=== PATIENT | male | born 1990 | race Caucasian/White ===

== ENCOUNTER 2017-12-12 08:24 | Inpatient (IN) | payer BC ==
[2017-12-12] VITALS (15 sets, daily range): BP systolic 91–161; BP diastolic 21–95
[~2017-12-12] VITALS: Ht 172.7 cm; Wt 79.8 kg
--- NOTE | 2017-12-12 08:31 | NUR ---
AAOX3, c/o nausea and vomiting since last night. RR is even and unlabored with NAD noted. skin is warm and dry. Awaiting md for eval.
[2017-12-12 08:53] LABS: EOSINOPHILS % (AUTO) 0.1 % (0.0-6.0); HEMATOCRIT 42 % (39-51); HEMOGLOBIN 14.6 g/dL (13.5-17.5); LYMPHOCYTES # (AUTO) 0.8 /CMM (0.8-4.8); LYMPHOCYTES % (AUTO) 6.5 % (20.0-44.0); MEAN CORPUSCULAR HGB CONC 35 g/dl (31.0-36.0); MEAN CORPUSCULAR VOLUME 85 fL (80-96); MONOCYTES # (AUTO) 0.7 /CMM (0.1-1.30); NEUTROPHILS # (AUTO) 10.6 /CMM (1.8-8.9); NEUTROPHILS % (AUTO) 87.4 % (43.0-81.0); PLATELET COUNT (AUTO) 263 /CMM (150-450); RDW COEFFICIENT OF VARIATION 13.5 (11.5-15.0); RED BLOOD CELL COUNT(AUTO) 4.86 MIL/uL (4.5-6.0); WHITE BLOOD COUNT (AUTO) 12.1 K/uL (4.3-11.0)
--- NOTE | 2017-12-12 09:04 | NUR ---
Patient is actively having a seizure, placed on NR at 15L/min. ER made aware.
[2017-12-12] MEDS ORDERED: LORAZEPAM INJ 2 MG/ML VIAL ONE (09:05)
[2017-12-12 09:08] LABS: ALBUMIN 4.1 g/dL (3.4-5.0); BILIRUBIN,DIRECT 0.2 mg/dL (0.0-0.2); CALCIUM, SERUM 8.7 mg/dL (8.5-10.1); CREATININE 0.8 mg/dL (0.6-1.3); POTASSIUM 4.5 mmol/L (3.5-5.1); TOTAL PROTEIN, SERUM 7.8 g/dL (6.4-8.2)
--- NOTE | 2017-12-12 09:21 | NUR ---
[facility] PAGED [phone] DR GONZALEZ LEAD SIMULATION MODELING ENGINEER
[2017-12-12] MEDS ORDERED: HYDROCORTISONE SOD SUCCINATE 100 MG/2 ML VIAL ONE (09:22)
[2017-12-12] MEDS ORDERED: IV Sodium Chloride 3% 500 ML 500 ML IV ONE ×3 (09:30→13:00)
[2017-12-12] MEDS ORDERED: LORAZEPAM INJ 2 MG/ML VIAL IV ONE (09:30)
[2017-12-12] MEDS ORDERED: HYDROCORTISONE SOD SUCCINATE 100 MG/2 ML VIAL IV ONE (09:30)
[2017-12-12] MEDS ORDERED: DESM0.2T23 PO (09:35)
[2017-12-12] MEDS ORDERED: LEVE1000 PO (09:35)
[2017-12-12 09:53] LABS: ALANINE AMINOTRANSFERASE 30 U/L (12-78); ALBUMIN 4.2 g/dL (3.4-5.0); ALCOHOL, BLOOD < 3 mg/dL (0-0); ALKALINE PHOSPHATASE 73 U/L (46-116); ASPARTATE AMINOTRANSFERASE 45 U/L (15-37); BILIRUBIN,DIRECT 0.2 mg/dL (0.0-0.2); TOTAL PROTEIN, SERUM 8.3 g/dL (6.4-8.2)
--- NOTE | 2017-12-12 10:07 | NUR ---
Patient is resting comfortably in bed with eyes closed. Easily aroused. VSS
--- NOTE | 2017-12-12 10:23 | NUR ---
called LAB for repeat blood draw.
[2017-12-12 10:43] LABS: CALCIUM, SERUM 8.4 mg/dL (8.5-10.1); CREATININE 0.9 mg/dL (0.6-1.3); POTASSIUM 4.4 mmol/L (3.5-5.1)
--- NOTE | 2017-12-12 10:52 | NUR ---
Report given to BARR[place] Tobias for INGRID 252.
--- NOTE | 2017-12-12 11:00 | NUR ---
ICU/RN PT ADMITTED FROM ER ,FROM HOME. ON RA.SAT O2-97%.V/S STABLE,AFEBRILE NO PAIN REPORTED AT THIS TIME.NOT C/O OF ANY NAUSEA/VOMITING AT THIS TIME. PERIFERAL IV INFUSING WITH 3%NS AT 100ML /HR. SKIN INTACT.WILL CONTINUE TO MONITOR.
[2017-12-12 11:03] LABS: APPEARANCE,URINE Slightly Cloudy (CLEAR); BILIRUBIN,URINE Negative (NEGATIVE); BLOOD, URINE Large Ery/uL (NEGATIVE); COLOR,URINE Yellow (YELLOW); KETONES,URINE 80 (NEGATIVE); LEUKOCYTE ESTERASE ,URINE Negative (NEGATIVE); NITRITE, URINE Negative (NEGATIVE); PROTEIN,URINE 30 mg/dl (NEGATIVE); UGLUCOSE Negative (NEGATIVE); UROBILINOGEN,URINE 0.2 EU/dL (0.2)
[2017-12-12 11:12] LABS: BACTERIA,URINE Rare /HPF (None Seen); RBC,URINE 20-50 /HPF (0-2); SQUAMOUS EPITHELIAL CELL,UR Few /HPF (None Seen); WBC,URINE 0-3 /HPF (0-3)
[2017-12-12] MEDS ORDERED: MAG HYDROX/AL HYDROX/SIMETH 30 ML UDC PO PRN (12:00)
[2017-12-12] MEDS ORDERED: HYDROCODONE/APAP 5/325MG 1 EACH TABLET PO PRN (12:00)
[2017-12-12] MEDS ORDERED: Z GUARD REMEDY 2 OZ OINT TP PRN (12:00)
[2017-12-12] MEDS ORDERED: MAGNESIUM HYDROXIDE 30 ML UDC PO PRN (12:00)
[2017-12-12] MEDS ORDERED: ACETAMINOPHEN 325 MG TABLET PO PRN (12:00)
[2017-12-12] MEDS ORDERED: LORAZEPAM INJ 2 MG/ML VIAL IV PRN (12:00)
[2017-12-12] MEDS ORDERED: ZOLPIDEM TARTRATE 5 MG TABLET PO PRN (12:00)
[2017-12-12] MEDS ORDERED: ONDANSETRON HCL/PF 4 MG/2 ML VIAL IVP PRN (12:00)
--- NOTE | 2017-12-12 12:10 | NUR ---
ICU/RN DUE MEDS ARE GIVEN ORDERED.DR GONZALEZ AND DR BE SEE THE PT AND TALK TO THE FAMILY AT BEDSIDE.PT HAS DIARRHEA-LIQUID BROWN STOOL.
[2017-12-12] MEDS: ENOXAPARIN SODIUM 40 MG/0.4 ML DISP.SYRIN SQ SCH (13:06)
[2017-12-12] MEDS: DESMOPRESSIN ACETATE 0.1 MG TABLET PO SCH ×2 (14:23→16:47)
[2017-12-12 15:52] LABS: CALCIUM, SERUM 8.3 mg/dL (8.5-10.1); CREATININE 0.7 mg/dL (0.6-1.3); POTASSIUM 4.1 mmol/L (3.5-5.1)
[2017-12-12] MEDS: LEVETIRACETAM (250 MG) 250 MG TABLET PO SCH (20:38)
--- NOTE | 2017-12-12 22:00 | NUR ---
CLIENT SPECIALIST - REC'D PT. A&O X 3, HOWEVER-AFTER EXPLAINING TO PT. TO USE CALL JAY WHEN HE NEEDS TO USE BSC, HE DIDN'T. COY'S. BED ALARM RINGING SEVERAL TIMES WHEN PT. ATTEMPTED TO GET OOB. HE STATED"HE FORGOT". PT. STANDS FIRMLY & SHOWS NO S/S OF DISTRESS, SX ACTIVITY NOR DISCOMFORT. PT. ACTS MORE ANXIOUS. HEART MONITOR SHOWS NSR/60-70'S, SBP'S ARE WNL. DENIES PAIN. AT 20:40, ATIVAN 0.5MG SLOW IVP WAS ADM. FOR COMFORT. AFEBRILE. NO EDEMA, ALL PULSES PALPABLE X 4 EXT. PT.HAS ONLY ONE PIV TO LAC & HAS 0.3%NS INFUSING AT 20CC/HR. VIA BRAGA PUMP. ALL PORTS PATENT TO FLUSH. CALL JAY IN REACH. PT. HAS POOR APPETITE. URINAL IS AT BS. ALSO. SKIN INTACT. PT.IS RECEIVING SODIUM BLOOD DRAWS Q 6 HRS. AT 2100-PT'S NA+ WAS #117 FROM #115 LAST ONE DRAWN. PT'S MOTHER-TRACY GRAHAM PHONED FROM [place]. STATUS UPDATE GIVEN OVER PHONE ONCE PT'S BIRTHDAY WAS VERIFIED. CONT.POC.
[2017-12-13] VITALS (16 sets, daily range): BP systolic 101–141; BP diastolic 44–104
--- NOTE | 2017-12-13 02:41 | NUR ---
PIG FURNACE OPERATOR - PT.'S BED ALARM IS SOUNDING OFF. PT. FOUND STANDING AT SIDE OF BED USING BSC TO URINATE. PT.IS COMPLETELY OFF THE MONITOR. RN REPEATEDLY REMINDED PT. TO USE CALL JAY (IN HIS BED) & HAS URINALS AT BOTH SIDES OF BED. PT. STATED "I FORGOT" AGAIN. PT.IS A&O X 3, HE KNOWS HIS NAME, THAT HE IS IN THE HOSPITAL & KNEW IT IS TUESDAY. NO SEIZURE ACTIVITY NOTED. CONT.POC.
[2017-12-13 03:42] LABS: BASOPHILS % (AUTO) 0.1 % (0.0-2.0); EOSINOPHILS % (AUTO) 0.5 % (0.0-6.0); HEMATOCRIT 42 % (39-51); HEMOGLOBIN 14.5 g/dL (13.5-17.5); LYMPHOCYTES # (AUTO) 1.4 /CMM (0.8-4.8); MEAN CORPUSCULAR HGB CONC 35 g/dl (31.0-36.0); MEAN CORPUSCULAR VOLUME 86 fL (80-96); MONOCYTES # (AUTO) 1.3 /CMM (0.1-1.30); MONOCYTES % (AUTO) 10.4 % (2.0-12.0); NEUTROPHILS # (AUTO) 9.8 /CMM (1.8-8.9); PLATELET COUNT (AUTO) 253 /CMM (150-450); RDW COEFFICIENT OF VARIATION 13.8 (11.5-15.0); RED BLOOD CELL COUNT(AUTO) 4.82 MIL/uL (4.5-6.0); WHITE BLOOD COUNT (AUTO) 12.5 K/uL (4.3-11.0)
[2017-12-13 04:06] LABS: CALCIUM, SERUM 8.7 mg/dL (8.5-10.1); CREATININE 0.7 mg/dL (0.6-1.3); MAGNESIUM 1.9 mg/dL (1.8-2.4); PHOSPHORUS 2.7 mg/dL (2.5-4.9)
[2017-12-13 04:12] LABS: POTASSIUM 3.5 mmol/L (3.5-5.1)
[2017-12-13] MEDS ORDERED: IV NS 0.9% 1,000 ML BAG IV PRN (06:30)
--- NOTE | 2017-12-13 06:45 | NUR ---
SENIOR POLICY ADVISOR - PT.REC'D A COMP. BEDBATH AT 5AM DUE TO [employer]. UOP = 2,600CC FOR 12 HR. SHIFT. PT'S MOTHER PHONED AGAIN AT 0640AM. STATUS UPDATE GIVEN. DR. TO PHONED FOR MIV ORDER. 3%NS WAS DC'D & MD ORDERED 0.9NS AT 100CC/HR. NOTED & DONE. AFEBRILE. PT.REMAINS ON R/A, POOR APPETITE. LAST SERUM SODIUM LEVEL = 120. CONT. POC. REPORT ADM. TO REGINALD FERRIS.
--- NOTE | 2017-12-13 07:15 | NUR ---
CIVILIAN JAIL OFFICER INITIAL NOTE PATIENT RECEIVED IN BED ALERT AND ORIENTED PLAN OF CARE DISCUSSED WITH THE PATIENT, PATIENT IN NO DISTRESS AT THIS TIME ABLE TO MAKE NEEDS KNOWN, 2 URINALS EMPTIED PATIENT ABLE TO MAKE NEEDS ATTENDED RN WILL CONTINUE TO MONITOR THROUGHOUT THE DAY
[2017-12-13] MEDS: DESMOPRESSIN ACETATE 0.1 MG TABLET PO SCH ×3 (08:22→16:49)
[2017-12-13] MEDS: LEVETIRACETAM (250 MG) 250 MG TABLET PO SCH ×2 (08:22→21:33)
[2017-12-13] MEDS: ENOXAPARIN SODIUM 40 MG/0.4 ML DISP.SYRIN SQ SCH (08:23)
--- NOTE | 2017-12-13 12:54 | NUR ---
RN NOTE RN CONTACTED THE KITCHEN FOR PATIENT LUNCH TRAY. KITCHEN STATES THE WILL REMAKE AND BRING IN A TRAY
--- NOTE | 2017-12-13 17:29 | NUR ---
RN NOTE PATIENT ABG OBTAINED RIGHT FEMORAL HD CATHETER PLACED PATIENT CONTINUES ON BIPAP AT THIS TIME, RIGHT NASAL BLEEDING NOTED ANU CERNA MADE AWARE, MD BOWMNA PLACE NASAL ROCKET TEMPORARILY. RN ATTEMPTED TO STOP BLEEDING VIA LIGHT PACKING AND APPLYING PRESSURES UNSUCCESSFUL DUE/TO DESATURATIONS WHILE OFF BIPAP. Addendum: 12/13/17 at 1859 by AL GARCIA RN PLEASE DISREGARD CHARTED UNDER WRONG PATIENT
--- NOTE | 2017-12-13 18:54 | NUR ---
SCHEDULE SUPERVISOR CLOSING NOTES PT REMAINS STABLE SINCE TRANSFER FROM ICU. VITALS STABLE THROUGHOUT. NO SEIZURE ACTIVITY NOTED, BUT PRECAUTIONS INITIATED FOR SAFETY. PT DENIES ANY PAIN. SMOKING CONSENT OBTAINED AND FORENSIC AUDIT EXPERT ERYN SIGNED. NEEDS MET DURING SHIFT. WILL ENDORSE TO NIGHTSHIFT NURSE FOR INGRID
[2017-12-14] VITALS: BP 131/80
[2017-12-14 04:00] VITALS: BP 150/76
[2017-12-14 06:27] LABS: BASOPHILS % (AUTO) 0.4 % (0.0-2.0); EOSINOPHILS % (AUTO) 1.4 % (0.0-6.0); HEMATOCRIT 47 % (39-51); HEMOGLOBIN 16.6 g/dL (13.5-17.5); LYMPHOCYTES # (AUTO) 2.3 /CMM (0.8-4.8); MEAN CORPUSCULAR HGB CONC 35 g/dl (31.0-36.0); MEAN CORPUSCULAR VOLUME 86 fL (80-96); MONOCYTES # (AUTO) 1.4 /CMM (0.1-1.30); MONOCYTES % (AUTO) 13.4 % (2.0-12.0); NEUTROPHILS # (AUTO) 6.6 /CMM (1.8-8.9); NEUTROPHILS % (AUTO) 62.8 % (43.0-81.0); PLATELET COUNT (AUTO) 271 /CMM (150-450); RDW COEFFICIENT OF VARIATION 14.9 (11.5-15.0); RED BLOOD CELL COUNT(AUTO) 5.51 MIL/uL (4.5-6.0); WHITE BLOOD COUNT (AUTO) 10.6 K/uL (4.3-11.0)
[2017-12-14 06:50] LABS: CALCIUM, SERUM 9.6 mg/dL (8.5-10.1); CREATININE 0.8 mg/dL (0.6-1.3); MAGNESIUM 1.9 mg/dL (1.8-2.4); PHOSPHORUS 3.6 mg/dL (2.5-4.9)
--- NOTE | 2017-12-14 07:10 | NUR ---
RN NOTES RECEIVED PT ON BED, A/Ox4, RESPIRATION EVEN AND UNLABORED , ON RA, NO SOB NOTED, ON TELE SR HR IN 60'S , NO IV SITE NOTED , PT STATED ,HE TOOK IT OUT BY MISTAKE , SR UP x3, CALL LIGHT WITHIN EASY REACH, BED LOCKED AND IN LOWEST POSITION , WILL CONTINUE TO MONITOR PT CLSOELY .
[2017-12-14 08:00] VITALS: BP 99/56
[2017-12-14] MEDS: LEVETIRACETAM (250 MG) 250 MG TABLET PO SCH (08:43)
[2017-12-14] MEDS: ENOXAPARIN SODIUM 40 MG/0.4 ML DISP.SYRIN SQ SCH (08:44)
[2017-12-14] MEDS: DESMOPRESSIN ACETATE 0.1 MG TABLET PO SCH ×2 (09:51→12:46)
[2017-12-14 12:00] VITALS: BP_SYST 116; BP_SYST 125; BP_DIAS 78; BP_DIAS 80
--- NOTE | 2017-12-14 15:27 | NUR ---
RN NOTES DISCHARGE INSTRUCTION GIVEN TO PT AND HIS FATHER , THEY VERBALIZES UNDERSTANDING, PT LEFT THE FLOOR AMBULATORY TO MAIN ENTRANCE ACCOMPANIED BY STAFF MEMBERS IN STABLE CONDITION .
== END 2017-12-14 15:26 | disposition home or self-care (01) | DRG 644 ==
LOC: ER 08:29 → ICU 10:58 → TELE1 12-13 16:43 → MEDSG1 12-14 10:23
PROVIDERS: ADMIT Internal Medicine; ATTEND Internal Medicine
DX: E23.2 Diabetes insipidus (principal); C96.6 Unifocal Langerhans-cell histiocytosis; E23.0 Hypopituitarism; M41.84 Other forms of scoliosis, thoracic region; G40.909 Epilepsy, unspecified, not intractable, without status epilepticus; F17.210 Nicotine dependence, cigarettes, uncomplicated; D72.829 Elevated white blood cell count, unspecified; F43.9 Reaction to severe stress, unspecified; F10.10 Alcohol abuse, uncomplicated; Y90.0 Blood alcohol level of less than 20 mg/100 ml; E86.0 Dehydration
CPT/HCPCS: 36415; 71045-TC; 80048-TC; 80076-TC; 80305; 81000-TC; 83690-TC; 83735-TC; 84100-TC; 84295-TC; 85025-TC; 87081-TC; A4606; G0480; J1650; J1720; J2060; J3490; J7030; Z7610

== ENCOUNTER 2019-03-15 17:15 | Emergency (ER) | payer BC ==
[~2019-03-15] VITALS: Ht 175.3 cm; Wt 72.1 kg
[~2019-03-15 17:15] MED LIST: DESM0.2T23 PO; LEVE1000 PO
[2019-03-15] MEDS ORDERED: OLANZAPINE 10 MG VIAL IM ONE ×2 (17:57→18:00)
[2019-03-15 17:58] LABS: BASOPHILS # (AUTO) 0.1 /CMM (0.0-0.2); BASOPHILS % (AUTO) 0.7 % (0.0-2.0); EOSINOPHILS % (AUTO) 4.7 % (0.0-6.0); HEMATOCRIT 48 % (39-51); HEMOGLOBIN 16.2 g/dL (13.5-17.5); LYMPHOCYTES # (AUTO) 1.7 /CMM (0.8-4.8); MEAN CORPUSCULAR HGB CONC 34 g/dl (31.0-36.0); MEAN CORPUSCULAR VOLUME 92 fL (80-96); MONOCYTES # (AUTO) 0.8 /CMM (0.1-1.30); MONOCYTES % (AUTO) 10.8 % (2.0-12.0); NEUTROPHILS # (AUTO) 4.6 /CMM (1.8-8.9); NEUTROPHILS % (AUTO) 60.8 % (43.0-81.0); PLATELET COUNT (AUTO) 205 /CMM (150-450); WHITE BLOOD COUNT (AUTO) 7.5 K/uL (4.3-11.0)
[2019-03-15 18:05] LABS: CALCIUM, SERUM 9.9 mg/dL (8.5-10.1); CARBON DIOXIDE 27 mmol/L (21-32); CHLORIDE 113 mmol/L (98-107); CREATININE 0.9 mg/dL (0.6-1.3); GLUCOSE 98 mg/dL (74-106); POTASSIUM 3.9 mmol/L (3.5-5.1); SODIUM SERUM 149 mmol/L (136-145); UREA NITROGEN, BLOOD 7 mg/dL (7-18)
[2019-03-15 18:17] LABS: ALANINE AMINOTRANSFERASE 51 U/L (12-78); ALBUMIN 4.4 g/dL (3.4-5.0); ALCOHOL, BLOOD < 3 mg/dL (0-0); ALKALINE PHOSPHATASE 63 U/L (46-116); ASPARTATE AMINOTRANSFERASE 33 U/L (15-37); BILIRUBIN,DIRECT 0.1 mg/dL (0.0-0.2); BILIRUBIN,TOTAL 0.4 mg/dL (0.2-1.0); SALICYLATE 7.6 mg/dL (2.8-20.0); TOTAL PROTEIN, SERUM 8.4 g/dL (6.4-8.2)
[2019-03-15 18:18] LABS: ACETAMINOPHEN < 2 ug/ml (10-30)
[2019-03-15 18:18] LABS: APPEARANCE,URINE Clear (CLEAR); BILIRUBIN,URINE Negative (NEGATIVE); BLOOD, URINE Negative Ery/uL (NEGATIVE); COLOR,URINE Yellow (YELLOW); KETONES,URINE Negative (NEGATIVE); LEUKOCYTE ESTERASE ,URINE Negative (NEGATIVE); NITRITE, URINE Negative (NEGATIVE); PROTEIN,URINE Negative (NEGATIVE); UGLUCOSE Negative (NEGATIVE); UROBILINOGEN,URINE 0.2 EU/dL (0.2)
[2019-03-15] MEDS ORDERED: IV NS 0.9% 1,000 ML BAG IV ONE ×2 (18:30)
--- NOTE | 2019-03-15 19:30 | NUR ---
ASSUMED CARE FOR PATIENT AT THIS TIME. PER REPORT, PT BIBRA COMBATIVE AND AGGRESSIVE. ON HOLD BY [employer]. AT THIS TIME PT STILL APPEARS AGGITATED. VITAL SIGNS STABLE. NO ACUTE DISTRESS NOTED AT THIS TIME. WILL CONTINUE TO MONITOR
[2019-03-15] MEDS ORDERED: LORAZEPAM INJ 2 MG/ML VIAL IV ONE (20:00)
[2019-03-15] MEDS ORDERED: diphenhydrAMINE HCL 50 MG/ML VIAL IV ONE (20:00)
[2019-03-15] MEDS ORDERED: diphenhydrAMINE HCL 50 MG/ML VIAL ONE (20:01)
[2019-03-15] MEDS ORDERED: LORAZEPAM INJ 2 MG/ML VIAL ONE (20:01)
--- NOTE | 2019-03-15 21:16 | NUR ---
PT RESTING IN BED. STILL APPEARS AGITATED. VITAL SIGNS STABLE. WILL CONTINUE TO MONITOR
--- NOTE | 2019-03-15 22:13 | NUR ---
FATHER CALLED TO CHECK STATUS OF SON. LEFT CONTACT INFORMATION. JACKSON PEACE .
--- NOTE | 2019-03-15 22:59 | NUR ---
PT APPEARS ANXIOUS TO LEAVE. VITAL SIGNS STABLE. SITTER AT BEDSIDE
--- NOTE | 2019-03-16 00:30 | NUR ---
ALICIA WIRE WINDER AT BEDSIDE FOR EVALUATION
--- NOTE | 2019-03-16 00:54 | NUR ---
PER ART, HEALTH AID PT STILL ACTING PSYCHOTIC POSSIBLY DUE TO AMPHETIMINES. DENIES SI/HI AT THIS TIME. PT IS TO STAY OVER NIGHT IN ER AND BE REEVALUATED IN THE AM. AT THIS TIME, PT STILL ON 5150.
[2019-03-16] MEDS ORDERED: OLANZAPINE 5 MG TABLET ONE (00:58)
[2019-03-16] MEDS ORDERED: OLANZAPINE 5 MG TABLET PO ONE (01:00)
--- NOTE | 2019-03-16 01:08 | NUR ---
PT REFUSING PO ZYPREXA. BECOMING RESTLESS IN BED. VERABLLY AGGRESSIVE AND MANIPULATIVE. ER AWARE.
[2019-03-16] MEDS ORDERED: OLANZAPINE 10 MG VIAL IM ONE ×2 (01:22→01:30)
--- NOTE | 2019-03-16 02:01 | NUR ---
PT STILL APPEARS ANXIOUS AND RESTLESS. VITAL SIGNS STABLE. SITTER AT BEDSIDE
--- NOTE | 2019-03-16 03:26 | NUR ---
PT STILL AWAKE AND RESTLESS IN BED. CONSTANTLY ATTEMPTING TO GET OUT OF BED. VITALS SIGNS STABLE. SITTER AT BEDSIDE. WILL CONTINUE TO MONITOR.
--- NOTE | 2019-03-16 04:35 | NUR ---
PT STILL AWAKE, VERY AGITATED AND YELLING IN BED. VITAL SIGNS STABLE. SITTER AT BEDSIDE. MD AWARE.
--- NOTE | 2019-03-16 06:27 | NUR ---
PT STAYED AWAKE. RESTLESS AND PARANOID. VITAL SIGNS STABLE. SITTER AT BEDSIDE. WILL CONTINUE TO MONITOR.
--- NOTE | 2019-03-16 07:03 | NUR ---
TRACY GRAHAM (MOTHER) CONTACT INFORMATION: [phone]
[2019-03-16] MEDS ORDERED: HALOPERIDOL LACTATE INJ 5 MG/ML VIAL IM ONE (08:30)
[2019-03-16] MEDS ORDERED: LORAZEPAM INJ 2 MG/ML VIAL IVP ONE (08:30)
[2019-03-16] MEDS ORDERED: diphenhydrAMINE HCL 50 MG/ML VIAL IV ONE (08:30)
[2019-03-16] MEDS ORDERED: diphenhydrAMINE HCL 50 MG/ML VIAL ONE (08:30)
[2019-03-16] MEDS ORDERED: HALOPERIDOL LACTATE INJ 5 MG/ML VIAL ONE (08:31)
[2019-03-16] MEDS ORDERED: LORAZEPAM INJ 2 MG/ML VIAL ONE (08:32)
--- NOTE | 2019-03-16 08:46 | NUR ---
PT STILL RESTLESS, MD AWARE MEDS GIVEN.
--- NOTE | 2019-03-16 18:26 | NUR ---
CALLED [facility] FOR TRANSPORT, 2129 ETA
--- NOTE | 2019-03-16 19:24 | NUR ---
CALLED [facility] FOR REPORT. PER DEEPA, REPORT ALREADY GIVEN.
[2019-03-16] MEDS ORDERED: LEVETIRACETAM (250 MG) 250 MG TABLET PO ONE ×2 (19:27→20:00)
--- NOTE | 2019-03-16 22:12 | NUR ---
GAVE REPORT TO [facility] FOR TRANSPORTATION INGRID
[2019-03-16 22:17] VITALS: BP 138/92
== END 2019-03-16 22:23 ==
LOC: ER 17:17
DX: R45.851 Suicidal ideations (principal); F15.10 Other stimulant abuse, uncomplicated; E86.0 Dehydration; E87.1 Hypo-osmolality and hyponatremia; F12.90 Cannabis use, unspecified, uncomplicated; F24 Shared psychotic disorder; E11.9 Type 2 diabetes mellitus without complications; Z79.899 Other long term (current) drug therapy; Z86.018 Personal history of other benign neoplasm
CPT/HCPCS: 36415; 80048; 80076; 80305; 80307; 80329; 81001; 85025; 96361; 96372 ×3; 96374; 96375 ×2; 99285; G0480; J1200 ×2; J1630; J2060 ×2; J3490 ×2; J7030; 81000-TC